=== PATIENT | female | born 1940 | race Caucasian/White ===

== ENCOUNTER 2018-09-18 16:25 | Emergency (ER) | payer MEDICARE ==
[~2018-09-18] VITALS: Ht 165.1 cm; Wt 59.0 kg
[~2018-09-18 16:25] MED LIST: CARV25 PO; MULVITMIND PO; Methimazole5 MG PO; OXYC10TA19; TOCO400 PO
[2018-09-18 17:25] LABS: Hematocrit 43.4 % (33.0-51.0); Hemoglobin 14.5 g/dL (11.5-16.0); Mean Corpuscular HGB 30.4 pg (26.0-34.0); Mean Corpuscular HGB Conc 33.4 g/dL (31.5-36.5); Mean Corpuscular Volume 91 fL (80-100); Mean Platelet Volume 10.9 fL (9.1-12.4); Platelet Count 187 K/mm3 (150-400); RDW Coefficient Variation 13.6 % (11.7-14.2); RDW Standard Deviation 46.3 fL (35.1-46.3); Red Blood Cell Count 4.77 M/mm3 (3.80-5.20); White Blood Cell Count 10.57 K/mm3 (4.00-11.30)
[2018-09-18 17:32] LABS: Bun/Creatinine Ratio 25.7 (12.0-20.0); Calcium, Blood 9.3 mg/dL (8.5-10.1); Creatinine, Blood 1.05 mg/dL (0.40-1.00); Potassium, Blood 4.1 mmol/L (3.5-5.5)
[2018-09-18] MEDS ORDERED: Norco 5-325 Ta1 EACH PO (17:57)
== END 2018-09-18 18:30 | disposition home or self-care (01) ==
LOC: ER 16:25
PROVIDERS: Emergency Medicine
DX: S61.412A Laceration without foreign body of left hand, initial encounter (principal); S61.411A Laceration without foreign body of right hand, initial encounter; S80.11XA Contusion of right lower leg, initial encounter; I42.9 Cardiomyopathy, unspecified; Z96.641 Presence of right artificial hip joint; Z88.2 Allergy status to sulfonamides; Z88.5 Allergy status to narcotic agent; Z88.8 Allergy status to other drugs, medicaments and biological substances; V86.99XA Unspecified occupant of other special all-terrain or other off-road motor vehicle injured in nontraffic accident, initial encounter
CPT/HCPCS: 73502; 73552; 73590; 80048; 82550; 85027; 90471; 90714; 99283-25

== ENCOUNTER 2019-09-12 09:21 | Day surgery (SDC) | payer MEDICARE ==
[~2019-09-12 09:21] MED LIST changes: +Hair, Skin & N1 EACH PO; -MULVITMIND PO; +Norco 5-325 Ta1 EACH PO
[2019-10-20] MEDS ORDERED: K-Dur10 MEQ PO (15:58)
[2019-10-20] MEDS ORDERED: VALSARTAN160 MG PO (15:59)
[2019-10-22] MEDS ORDERED: OXYC5 PO (12:51)
[2019-10-22] MEDS ORDERED: XARELTO15 MG PO (15:53)
== END 2019-09-12 23:00 | disposition home or self-care (01) ==
LOC: MOI US 09:21 → MOI MAM 09:30 → MOI US 23:00
DX: C50.812 Malignant neoplasm of overlapping sites of left female breast (principal); Z17.0 Estrogen receptor positive status [ER+]
CPT/HCPCS: 19083; 77065; 88305; 88360; A4648

== ENCOUNTER → 2019-10-20 | Outpatient (CLI) | payer MEDICARE ==
[~2019-10-20] MED LIST changes: +K-Dur10 MEQ PO; +OXYC5 PO; +VALSARTAN160 MG PO; +XARELTO15 MG PO
[2019-10-20 12:21] LABS: Hematocrit 41.2 % (33.0-51.0); Hemoglobin 14.2 g/dL (11.5-16.0); Mean Corpuscular HGB 30.6 pg (26.0-34.0); Mean Corpuscular HGB Conc 34.5 g/dL (31.5-36.5); Mean Corpuscular Volume 89 fL (80-100); Mean Platelet Volume 12.5 fL (9.1-12.4); Platelet Count 77 K/mm3 (150-400); RDW Coefficient Variation 13.4 % (11.7-14.2); RDW Standard Deviation 44.2 fL (35.1-46.3); Red Blood Cell Count 4.64 M/mm3 (3.80-5.20); White Blood Cell Count 1.13 K/mm3 (4.00-11.30)
[2019-10-20 12:39] LABS: Alanine Aminotransfer (ALT/SGP 25 U/L (12-78); Albumin/Globulin Ratio 0.9 (0.8-1.8); Alk Phos 64 U/L (50-136); Anion Gap 6 mmol/L (6-16); Aspartate Aminotrans (AST/SGOT 15 U/L (12-37); Bilirubin, Total 0.7 mg/dL (0.1-1.0); Blood Urea Nitrogen 27 mg/dL (8-24); Bun/Creatinine Ratio 41.3 (12.0-20.0); CO2, Blood 24 mmol/L (21-32); Calcium, Blood 8.8 mg/dL (8.5-10.1); Chloride, Blood 103 mmol/L (98-108); Creatinine, Blood 0.65 mg/dL (0.40-1.00); Globulin, Blood 3.4 g/dL (2.2-4.0); Glomerular Filtration Rate >60 (60-); Glucose, Blood 123 mg/dL (70-99); Potassium, Blood 4.7 mmol/L (3.5-5.5); Sodium, Blood 133 mmol/L (136-145); Total Protein, Blood 6.4 g/dL (6.4-8.2)
[2019-10-20 12:50] LABS: BASOPHILS ABSOLUTE MAN 0.02 K/mm3 (0.00-0.23); BASOPHILS PERCENT MAN 2 % (0-2); EOSINOPHILS ABSOLUTE MAN 0.05 K/mm3 (0.00-0.68); EOSINOPHILS PERCENT MAN 5 % (0-6); LYMPHOCYTES ABSOLUTE MAN 0.37 K/mm3 (0.84-5.20); LYMPHOCYTES PERCENT MAN 33 % (21-46); MONOCYTES ABSOLUTE MAN 0.05 K/mm3 (0.16-1.47); MONOCYTES PERCENT MAN 5 % (4-13); NEUTROPHILS ABSOLUTE MAN 0.61 K/mm3 (1.96-9.15); SEG NEUTROPHILS PERCENT MAN 54 % (41-73); TOTAL CELLS COUNTED 57
== END | disposition home or self-care (01) ==
LOC: LAB 11:46 → LAB SHORT 11:46
PROVIDERS: Internal Medicine Hematology & Oncology
DX: C50.919 Malignant neoplasm of unspecified site of unspecified female breast (principal)
CPT/HCPCS: 80053; 85025

== ENCOUNTER → 2020-06-28 | Outpatient (CLI) | payer MEDICARE ==
[~2020-06-28] MED LIST changes: +Lasix20 MG PO
== END | disposition home or self-care (01) ==
LOC: LAB SHORT 12:47 → PLD 12:47
DX: D09.8 Carcinoma in situ of other specified sites (principal); L57.0 Actinic keratosis
CPT/HCPCS: 88305

== ENCOUNTER 2022-09-19 11:25 | Inpatient (IN) | payer MEDICARE ==
[~2022-09-19] VITALS: Ht 167.6 cm; Wt 58.1 kg
[2022-09-19 12:21] LABS: BASOPHILS ABSOLUTE AUTO 0.06 K/mm3 (0.00-0.23); BASOPHILS PERCENT AUTO 1 % (0-2); EOSINOPHILS ABSOLUTE AUTO 0.16 K/mm3 (0.00-0.68); EOSINOPHILS PERCENT AUTO 2 % (0-6); Hematocrit 44.5 % (33.0-51.0); Hemoglobin 15.6 g/dL (11.5-16.0); IMMATURE GRAN ABSOLUTE AUTO 0.04 K/mm3 (0.00-0.10); IMMATURE GRAN PERCENT AUTO 0 % (0-1); LYMPHOCYTES ABSOLUTE AUTO 1.04 K/mm3 (0.84-5.20); LYMPHOCYTES PERCENT AUTO 11 % (21-46); MONOCYTES ABSOLUTE AUTO 0.65 K/mm3 (0.16-1.47); MONOCYTES PERCENT AUTO 7 % (4-13); Mean Corpuscular HGB 31.1 pg (26.0-34.0); Mean Corpuscular HGB Conc 35.1 g/dL (31.5-36.5); Mean Corpuscular Volume 89 fL (80-100); Mean Platelet Volume 10.2 fL (9.1-12.4); NEUTROPHILS ABSOLUTE AUTO 7.42 K/mm3 (1.96-9.15); NEUTROPHILS PERCENT AUTO 79 % (41-73); Platelet Count 192 K/mm3 (150-400); RDW Standard Deviation 45.4 fL (35.1-46.3); Red Blood Cell Count 5.02 M/mm3 (3.80-5.20); White Blood Cell Count 9.37 K/mm3 (4.00-11.30)
[2022-09-19 12:35] LABS: Albumin, Blood 3.3 g/dL (3.4-5.0); Albumin/Globulin Ratio 0.8 (0.8-1.8); Bilirubin, Total 0.6 mg/dL (0.1-1.0); Bun/Creatinine Ratio 32.9 (12.0-20.0); Calcium, Blood 8.9 mg/dL (8.5-10.1); Creatinine, Blood 0.94 mg/dL (0.40-1.00); Globulin, Blood 3.9 g/dL (2.2-4.0); Potassium, Blood 4.4 mmol/L (3.5-5.5); Total Protein, Blood 7.2 g/dL (6.4-8.2)
[2022-09-19] MEDS ORDERED: XARELTO20 MG PO (15:54)
[2022-09-19 16:11] VITALS: BP 130/63
--- NOTE | 2022-09-19 16:45 | NUR ---
ADMIT ARRIVED FROM ED VIA Kelvin HOWARD&ANISH4, DENIES ANY PAIN, C/O SOB, WORSE WITH ACTIVITY AND BETTER WHEN LYING DOWN, DENIES ANY N/V, DIZZINESS, LUNG SOUNDS DIMINISHED AND TIGHT T/O, SATS 97% ON RA, TELE PLACED, SB AT 49 W/ PVC'S AND 1ST DEGREE BBB [facility], PT ORIENTED TO ROOM, CALL LIGHT WITHIN REACH, CONT. TO MONITOR FOR ANY CHANGES.
--- NOTE | 2022-09-19 18:17 | NUR ---
SUMMARY PT ARRIVED FROM THE ER THIS AFTERNOON, REPORTS SOB IS SLIGHTLY "BETTER" SINCE ADMIT, CONT. TO VOID FREQUENTLY, INDEPENDENT TO THE BATHROOM, DENIES ANY OTHER DISCOMFORT, NO ACUTE CHANGES THIS SHIFT.
[2022-09-19 19:56] VITALS: BP 121/68
[2022-09-19 21:51] LABS: Magnesium, Blood 2.4 mg/dL (1.6-2.4); Potassium, Blood 3.4 mmol/L (3.5-5.5)
[2022-09-20 04:18] VITALS: BP 89/71
[2022-09-20 04:51] VITALS: BP 113/71
[2022-09-20 04:54] VITALS: BP 109/63
--- NOTE | 2022-09-20 05:04 | NUR ---
SHIFT SUMMARY; NO ACUTE CHANGES OVERNIGHT. THE PT HAS BEEN SLEEPING IN BED FOR THE DURATION OF THE SHIFT. THE PT IS AXO X4 AND INDEPENDENT TO THE BATHROOM. THE PT DID HAVE A 6 BEAT RUN OF [place]ACH LAST NIGHT, FOR WHICH SARKIS FLORES WAS MADE AWARE OF. SARKIS FLORES HAD US CHECK THE PATIENTS POTASSIUM AND MAG LEVEL, POTASSIUM WAS LOW SO WE REPLACED WITH IV AND PO POTASSIUM. ADDITIONALY, THE PT HAS BEEN IN AND OUT OF SINUS ARRYTHMIA. THE PT DENIES ANY PAIN, SOB, CHEST PAIN/PRESSURE OR N/V THIS SHIFT. CURRENTLY THE PT IS SLEEPING IN BED WITH THE BED IN THE LOWEST POSITION AND THE CALL LIGHT AT BEDSIDE.
[2022-09-20 05:41] LABS: Bun/Creatinine Ratio 29.7 (12.0-20.0); Creatinine, Blood 0.91 mg/dL (0.40-1.00); Potassium, Blood 4.4 mmol/L (3.5-5.5)
[2022-09-20 09:23] VITALS: BP 117/74
--- NOTE | 2022-09-20 11:31 | NUR ---
FIRE NOTE PT EDUCATED RE: IGNITION SOURCES AND RISK OF INJURY. PT VERBALIZED UNDERSTANDING AND DENIED SMOKING OR HAVING LIGHTABLE DEVICES AT THIS ITME. CONTINUE POC.
[2022-09-20 16:06] VITALS: BP 116/78
--- NOTE | 2022-09-20 17:53 | NUR ---
EVENING NOTE PT UP ADLIB IN RTOOM. VOIDING WELL. STRICT I/O. DAILY WT DONE. ECHO COMPLETE. PT C/O OF EVENING SOB. DR YESENIA MAHMOOD. PT STAYING TONIGHT. SHE HAD SOME MISCOMCEPTIONS ABOUT AICD/BIVENTRICULAR PACEMAKER. CLARIFIED HER IDEAS. SHE WILL BE REACHING OUT TO HER ARCHEOLOGIST CLASSICAL IN [place] WHEN SHE IS DISCHARGED TO DISCUSS PLACEMENT. VSS. RA. CONTINUE POC.
[2022-09-20 19:37] VITALS: BP 104/63
[2022-09-21 04:29] VITALS: BP 124/61
[2022-09-21 06:17] LABS: Bun/Creatinine Ratio 30.2 (12.0-20.0); Calcium, Blood 8.7 mg/dL (8.5-10.1); Creatinine, Blood 0.96 mg/dL (0.40-1.00); Potassium, Blood 3.7 mmol/L (3.5-5.5)
--- NOTE | 2022-09-21 06:45 | NUR ---
SUMMARY NO ACUTE CHANGES NOTED, PT IS A&OX4, ON RA, VSS, INDEPENDENT IN THE ROOM, PT SAYS SHE GETS SOB W/ACTIVITY, DENIES DIZZINESS, CP/PRESSURE. RESTING AT THIS TIME, CALL LIGHT IN REACH, WCYFN & REPORT TO DAY RN
[2022-09-21 07:26] VITALS: BP 112/73
[2022-09-21] MEDS ORDERED: LISI5 PO (13:04)
--- NOTE | 2022-09-21 14:21 | NUR ---
SHIFT SUMMARY- VSS. PT INDEPENDANT IN ROOM. PT EAGER FOR D/C. ON RA. TELE AFIB, AND 5 SEC RUN SVT VIA [employer] CONSULTANT, PT ASYMPTOMATIC. WILL CONTINUE TO MONITOR. CALL LIGHT IN REACH. BED AT LOWEST POSITION.
--- NOTE | 2022-09-21 14:28 | NUR ---
DISCHARGE PT EDUCATED ON DISCHARGE PAPERWORK. SON TO TRANSPORT PT HOME VIA [employer]. ALL BELONGINGS IN HAND. WHEELCHAIR DRIVEN TO SON [employer].
--- NOTE | 2022-09-21 14:30 | NUR ---
FIRE SAFETY EDUCATED PT ON IGITION SOURCES, NONE FOUND IN ROOM. PT UNDERSTANDS FIRE SAFETY EDUCATION. PT NOT ON O2. HOURLY ROUNDING PERFORMED FOR PT SAFETY.
== END 2022-09-21 13:59 | disposition home or self-care (01) | DRG 292 ==
LOC: ER 11:25 → MEDS 11:26 → ENPENDDIS 09-21 12:59 → MEDS 09-21 13:59
PROVIDERS: Nurse Practitioner Acute Care; Physician Assistant; ADMIT Internal Medicine
DX: I50.23 Acute on chronic systolic (congestive) heart failure (principal); I42.9 Cardiomyopathy, unspecified; I47.1 Supraventricular tachycardia; E05.00 Thyrotoxicosis with diffuse goiter without thyrotoxic crisis or storm; I48.0 Paroxysmal atrial fibrillation; R00.1 Bradycardia, unspecified; I95.9 Hypotension, unspecified; Z88.2 Allergy status to sulfonamides; Z88.8 Allergy status to other drugs, medicaments and biological substances; Z88.5 Allergy status to narcotic agent; Z79.899 Other long term (current) drug therapy; Z86.718 Personal history of other venous thrombosis and embolism; Z79.01 Long term (current) use of anticoagulants; Z79.891 Long term (current) use of opiate analgesic; Z85.3 Personal history of malignant neoplasm of breast; Z86.79 Personal history of other diseases of the circulatory system; Z96.651 Presence of right artificial knee joint; Z90.12 Acquired absence of left breast and nipple; Z90.49 Acquired absence of other specified parts of digestive tract; Z98.890 Other specified postprocedural states
CPT/HCPCS: 36415; 71046; 80048; 80053; 83735; 83880; 84132; 84484; 85025; 93005; 93010; 96365; 96366; 96375; 96376; 99285-25; A9270; C8929; G0378; J1940; J3475; J3480; J7050; Q9957

== ENCOUNTER 2022-12-22 19:48 | Observation (INO) | payer MEDICARE ==
[~2022-12-22] VITALS: Ht 165.1 cm; Wt 64.9 kg
[~2022-12-22 19:48] MED LIST changes: +LISI5 PO; +XARELTO20 MG PO
[2022-12-22 20:54] LABS: BASOPHILS ABSOLUTE AUTO 0.06 K/mm3 (0.00-0.23); BASOPHILS PERCENT AUTO 1 % (0-2); EOSINOPHILS ABSOLUTE AUTO 0.25 K/mm3 (0.00-0.68); EOSINOPHILS PERCENT AUTO 2 % (0-6); Hematocrit 39.6 % (33.0-51.0); Hemoglobin 13.4 g/dL (11.5-16.0); IMMATURE GRAN PERCENT AUTO 1 % (0-1); LYMPHOCYTES ABSOLUTE AUTO 1.18 K/mm3 (0.84-5.20); LYMPHOCYTES PERCENT AUTO 10 % (21-46); MONOCYTES ABSOLUTE AUTO 1.13 K/mm3 (0.16-1.47); MONOCYTES PERCENT AUTO 10 % (4-13); Mean Corpuscular HGB 30.9 pg (26.0-34.0); Mean Corpuscular HGB Conc 33.8 g/dL (31.5-36.5); Mean Corpuscular Volume 92 fL (80-100); Mean Platelet Volume 10.3 fL (9.1-12.4); NEUTROPHILS ABSOLUTE AUTO 9.13 K/mm3 (1.96-9.15); NEUTROPHILS PERCENT AUTO 77 % (41-73); Platelet Count 167 K/mm3 (150-400); RDW Coefficient Variation 14.6 % (11.7-14.2); RDW Standard Deviation 48.8 fL (35.1-46.3); Red Blood Cell Count 4.33 M/mm3 (3.80-5.20); White Blood Cell Count 11.85 K/mm3 (4.00-11.30)
[2022-12-22 21:17] LABS: Albumin, Blood 3.4 g/dL (3.4-5.0); Bilirubin, Total 0.4 mg/dL (0.1-1.0); Bun/Creatinine Ratio 30.7 (12.0-20.0); Calcium, Blood 9.4 mg/dL (8.5-10.1); Creatinine, Blood 0.94 mg/dL (0.40-1.00); Globulin, Blood 3.3 g/dL (2.2-4.0); Total Protein, Blood 6.7 g/dL (6.4-8.2)
[2022-12-23] VITALS (8 sets, daily range): BP systolic 98–116; BP diastolic 53–73
[2022-12-23 04:40] LABS: International Normalized Ratio 1.12; Prothrombin Time Results 11.7 Sec (9.7-11.5)
--- NOTE | 2022-12-23 06:53 | NUR ---
ASSUMPTION OF CARE PT ARRIVED TO PCU AT 0530. ARRIVED FROM ED VIA GURNEY, TRANSFERRED TO PCU HOSPITAL BED W/SBA. VSS; SBP SOFT AT 111 BUT PT STATES "THIS IS NORMAL" FOR HER. DENIES DIZZINESS OR LIGHTHEADNESS AT THIS TIME. PT ON RA, SPO2 99%. DENIES SOB. PT DENIES CP OR PRESSURE. PT HAS BRUISING ON R SIDE OF THE FACE, SHOULDER, R HAND AND ELBOW, AND HIP, KNEE; ALSO VARIOUS SMALL BRUISES SCATTERED FROM RECENT FALL AT HOME. PICTURES IN CHART. NEURO INTACT; PT A&O X4. FOLLOWS COMMANDS AND STRENGTH INTACT. PROVIDER INTO SEE PT AT BEDSIDE. PT NOW RESTING IN ROOM. NS INFUSING PER EMAR. WILL UPDATE ONCOMING RN
[2022-12-23 08:46] LABS: BASOPHILS ABSOLUTE AUTO 0.03 K/mm3 (0.00-0.23); BASOPHILS PERCENT AUTO 0 % (0-2); EOSINOPHILS ABSOLUTE AUTO 0.16 K/mm3 (0.00-0.68); EOSINOPHILS PERCENT AUTO 2 % (0-6); Hematocrit 36.9 % (33.0-51.0); Hemoglobin 12.9 g/dL (11.5-16.0); IMMATURE GRAN ABSOLUTE AUTO 0.02 K/mm3 (0.00-0.10); IMMATURE GRAN PERCENT AUTO 0 % (0-1); LYMPHOCYTES ABSOLUTE AUTO 0.88 K/mm3 (0.84-5.20); LYMPHOCYTES PERCENT AUTO 12 % (21-46); MONOCYTES ABSOLUTE AUTO 1.08 K/mm3 (0.16-1.47); MONOCYTES PERCENT AUTO 14 % (4-13); Mean Corpuscular HGB 31.7 pg (26.0-34.0); Mean Corpuscular Volume 91 fL (80-100); Mean Platelet Volume 10.4 fL (9.1-12.4); NEUTROPHILS ABSOLUTE AUTO 5.44 K/mm3 (1.96-9.15); NEUTROPHILS PERCENT AUTO 71 % (41-73); Platelet Count 149 K/mm3 (150-400); RDW Coefficient Variation 14.5 % (11.7-14.2); RDW Standard Deviation 48.1 fL (35.1-46.3); Red Blood Cell Count 4.07 M/mm3 (3.80-5.20); White Blood Cell Count 7.61 K/mm3 (4.00-11.30)
[2022-12-23 09:08] LABS: Free Thyroxine 1.22 ng/dL (0.70-1.60)
[2022-12-23 09:09] LABS: Thyroid Stimulating Hormone 1.09 uIU/mL (0.360-4.800)
--- NOTE | 2022-12-23 09:17 | NUR ---
CARE OF PT ASSUMED AT 0700. PT AWAKE AND ALERT, OX3. NO NEURO DEFICITS NOTED. PT DENIES HEADACHE. NO CHANGE IN VISION. PUPILS EQUAL AND REACTIVE 3/3MM. STRENGTH EQUAL TO BLE/BUE. PT SBA TO BATHROOM. PT C/O PAIN 6/10 TO RIGHT SIDE OF BODY; WHERE FALL OCCURED. PT C/O RIGHT RIB, SHOULDER, AND LOWER BACK PAIN. PT STATED OXY 5MG WORKS WELL; DR CORDOVA AT BEDSIDE AND WAS UPDATED; OXY 5MG Q 4HRS ORDERED FOR PAIN. INITIAL BP THIS AM SOFT W MAP 66. WILL HOLD COREG/LASIX FOR NOW AND REASSESS PER DR CORDOVA. EXTENSIVE BRUISING NOTED TO RIGHT SIDE BODY; PICTURES TAKEN. REPORT GIVEN TO MAC OLIVER AT 0900.
[2022-12-23 09:24] LABS: Albumin, Blood 3.1 g/dL (3.4-5.0); Albumin/Globulin Ratio 1.1 (0.8-1.8); Bilirubin, Total 0.5 mg/dL (0.1-1.0); Bun/Creatinine Ratio 26.3 (12.0-20.0); Calcium, Blood 8.8 mg/dL (8.5-10.1); Creatinine, Blood 0.84 mg/dL (0.40-1.00); Globulin, Blood 2.9 g/dL (2.2-4.0); Potassium, Blood 3.7 mmol/L (3.5-5.5)
--- NOTE | 2022-12-23 09:50 | NUR ---
Assumed care of patient. Pt resting in bed. Large bruses noted to face, L hand, and R shoulder. Also scattered. See pictures in chart. Pt states that most of her pain is in her R side/ribs. Pt was just medicated for pain per orders. LS diminished in bases. HR reg. BT positive. Pulses palp. Pt A/O x4. No neurologic deficits noted. IVF running per orders. Call light in reach. Will continue to monitor.
[2022-12-23 15:07] LABS: Source, Urine Clean Catch
[2022-12-23 15:14] LABS: Appearance, Urine Clear (Clear); Bilirubin, Urine Neg (Neg); Blood, Urine 1+ (Neg); Color, Urine Yellow (P-Yellow); Glucose Qualitative, Urine Neg (Neg); Ketones, Urine Neg (Neg); Leukocyte Esterase, Urine Neg (Neg); Nitrite, Urine Neg (Neg); Protein, Urine Neg (Neg); Specific Gravity, Urine 1.015 (1.003-1.022); Urobilinogen, Urine NORM (Normal)
[2022-12-23 15:20] LABS: Bacteria Few /hpf; Red Blood Cells, Urine 0-2 /hpf (0-2); Squamous Epithelial Cells Few /hpf (Few); White Blood Cells, Urine 0-2 /hpf (0-5)
--- NOTE | 2022-12-23 16:56 | NUR ---
ASSUME CARE/SHIFT SUMMARY ASSUMED CARE OF PT AT 1300. PT ALERT AND ORIENTED X4, ABLE TO FOLLOW COMMANDS AND MAKE NEEDS KNOWN. STRENGTH EQUAL BILATERALLY. NO NERUO DEFICITS NOTED. BP AND HR STABLE. AFEBRILE. SPO2 >98% ON ROOM AIR. LUNG SOUNDS CLEAR IN UPPER, DIM IN BASES. PULSES STRONG AND EQUAL THROUGHOUT. PT WITH LARGE CONTUSION ON FACE. PT WITH 6/10 PAIN, MEDICATED PER EMAR. NS GTT @75 ML/HR IN R. FOREARM. PT SBA TO AND FROM BATHROOM. URINE SPECIMEN COLLECTED. BED IN LOW, CALL LIGHT IN REACH, WILL REPORT TO ONCOMING RN.
[2022-12-24 04:00] VITALS: BP 113/79
--- NOTE | 2022-12-24 06:16 | NUR ---
SHIFT SUMMARY PT REMAINS A&O X4. NEURO CHECKS UNCHANGED. VSS. PT DENIES DIZZINESS OR LIGHTHEADNESS WHEN UP AMBULATING TO RESTROOM OR WHEN AT REST. PT C/O PAIN ON R SIDE, RIGHT SHOULDER AND R SIDE OF THE FACE. MEDICATION PER EMAR X2 THIS SHIFT W/GOOD RELIEF. REPOSITIONING, UNINTERRUPTED REST AND WARM BLANKET GIVEN TO HELP WITH PAIN CONTROL. NO ACUTE EVENTS OVERNIGHT. WILL UPDATE ONCOMING RN
[2022-12-24 08:06] VITALS: BP 109/81
[2022-12-24 11:00] VITALS: BP 153/68
[2022-12-24] MEDS ORDERED: DOCU100 PO (13:08)
[2022-12-24] MEDS ORDERED: ONDA4ODT MM (13:09)
--- NOTE | 2022-12-24 14:01 | NUR ---
DISCHARGE: PT D/C WITH SON @8511. DISCHARGE INSTRCTIONS AND EDUCATION PROVIDED. ALL BELONGINGS WITH PT.
== END 2022-12-24 13:55 | disposition home or self-care (01) ==
LOC: ER 19:48 → PCU 19:49
PROVIDERS: Internal Medicine; Physician Assistant; Student in an Organized Health Care Education/Training Program; ADMIT Internal Medicine
DX: S06.6XAA Traumatic subarachnoid hemorrhage with loss of consciousness status unknown, initial encounter (principal); W19.XXXA Unspecified fall, initial encounter; E05.00 Thyrotoxicosis with diffuse goiter without thyrotoxic crisis or storm; I50.20 Unspecified systolic (congestive) heart failure; Z86.718 Personal history of other venous thrombosis and embolism; Z88.5 Allergy status to narcotic agent; Z88.6 Allergy status to analgesic agent; Z88.2 Allergy status to sulfonamides; Z88.1 Allergy status to other antibiotic agents; Z79.01 Long term (current) use of anticoagulants; Z79.899 Other long term (current) drug therapy
CPT/HCPCS: 36415; 70450; 71045; 72125; 73030; 80053; 81001; 83880; 84439; 84443; 85025; 85610; 85730; 86850; 86900; 86901; 93005; 93010; 96365; 97162; 97530; 99285-25; A9270; G0378; J1953; J7030

== ENCOUNTER 2023-01-15 11:56 | Emergency (ER) | payer MEDICARE ==
[~2023-01-15] VITALS: Ht 165.1 cm; Wt 56.7 kg
[~2023-01-15 11:56] MED LIST changes: +DOCU100 PO; +ONDA4ODT MM
[2023-01-15 12:15] VITALS: BP 149/85
[2023-01-15] MEDS ORDERED: CELE100 PO (15:36)
== END 2023-01-15 15:49 | disposition home or self-care (01) ==
LOC: ER 11:56
DX: M75.31 Calcific tendinitis of right shoulder (principal); Z88.2 Allergy status to sulfonamides; Z88.5 Allergy status to narcotic agent; Z79.899 Other long term (current) drug therapy; Z88.8 Allergy status to other drugs, medicaments and biological substances; Z85.3 Personal history of malignant neoplasm of breast; I50.9 Heart failure, unspecified
CPT/HCPCS: 73030; 93005; 93010; 99283-25

== ENCOUNTER 2023-03-29 06:13 | Day surgery (SDC) | payer MEDICARE ==
[~2023-03-29] VITALS: Ht 165.1 cm; Wt 60.0 kg
[~2023-03-29 06:13] MED LIST changes: +CELE100 PO
[2023-03-29 06:54] VITALS: BP 124/80
[2023-03-29 08:08] VITALS: BP 105/57
[2023-03-29 08:15] VITALS: BP 111/73
--- NOTE | 2023-03-29 08:15 | NUR ---
PT BACK TO RECOVERY ROOM VIA RECLINER AFTER PROCEDURE. AWAKE AND ALERT, DENIES ANY PAIN OR DISCOMFORT. VSS, RIGHT RADIAL SITE WITH PRELUDE BAND AND SPLINT IN PLACE. COFFEE GIVEN PER PT REQUEST
[2023-03-29 08:30] VITALS: BP 108/73
--- NOTE | 2023-03-29 08:33 | NUR ---
PT EATING BREAKFAST, VISITING WITH STAFF. RIGHT RADIAL SITE REMAINS SOFT AND NON-TENDER. CALL LIGHT IN REACH
[2023-03-29 08:45] VITALS: BP 112/77
--- NOTE | 2023-03-29 08:57 | NUR ---
RIGHT RADIAL PRELUDE BAND HAS BEEN FULLY DEFLATED, NO BLEEDING OR SWELLING AT SITE. VSS, CALL LIGHT IN REACH. PT GIVEN ADDITIONAL COFFEE PER REQUEST, DENIES OTHER NEEDS.
[2023-03-29 09:00] VITALS: BP 125/99
--- NOTE | 2023-03-29 09:35 | NUR ---
IV DC'D, CATH INTACT. PT GIVEN DC INSTRUCTIONS AND FOLLOW UP INFO, VERBALIZED UNDERSTANDING. RIGHT RADIAL SITE WITH CLOTH DOT DRESSING AND SPLINT IN PLACE, NO BLEEDING OR SWELLING NOTED AT SITE. OUT TO CAR VIA WHEELCHAIR, ACCOMPANIED BY SON WHO WILL DRIVE PT HOME.
== END 2023-03-29 22:55 | disposition home or self-care (01) ==
LOC: MHTC 06:13
DX: I13.0 Hypertensive heart and chronic kidney disease with heart failure and stage 1 through stage 4 chronic kidney disease, or unspecified chronic kidney disease (principal); I50.22 Chronic systolic (congestive) heart failure; N18.9 Chronic kidney disease, unspecified; I42.8 Other cardiomyopathies; I25.10 Atherosclerotic heart disease of native coronary artery without angina pectoris; R55 Syncope and collapse; I45.5 Other specified heart block; I48.0 Paroxysmal atrial fibrillation; Z66 Do not resuscitate; Z88.5 Allergy status to narcotic agent; Z88.6 Allergy status to analgesic agent; Z79.899 Other long term (current) drug therapy
CPT/HCPCS: 76937; 93005; 93010; 93454; 99152; 99153; A9270; C1769; C1887; C1894; J1644; J2250; J3010; J7030; J7050; Q9967

== ENCOUNTER 2023-04-12 06:40 | Day surgery (SDC) | payer MEDICARE ==
[2023-04-12] VITALS (13 sets, daily range): BP systolic 93–171; BP diastolic 62–111
[~2023-04-12] VITALS: Ht 165.1 cm; Wt 56.0 kg
[~2023-04-12 06:40] MED LIST changes: +C COMPLEX1000 M1 PO; +Calcium Carbon500 MG PO; +FISH OIL 1,0001 EA10 PO
[2023-04-13] VITALS: BP 95/57
[2023-04-13 01:00] VITALS: BP 97/65
[2023-04-13 03:00] VITALS: BP 91/55
[2023-04-13 07:00] VITALS: BP 115/69
[2023-04-13] MEDS ORDERED: Cephalexin500 MG PO (10:08)
== END 2023-04-13 10:55 | disposition home or self-care (01) ==
LOC: MHTC 06:40 → PCU 13:06 → MHTC 04-13 10:55
DX: I44.0 Atrioventricular block, first degree (principal); I49.5 Sick sinus syndrome; I42.8 Other cardiomyopathies; I45.10 Unspecified right bundle-branch block; I13.0 Hypertensive heart and chronic kidney disease with heart failure and stage 1 through stage 4 chronic kidney disease, or unspecified chronic kidney disease; N18.9 Chronic kidney disease, unspecified; I50.22 Chronic systolic (congestive) heart failure; I34.0 Nonrheumatic mitral (valve) insufficiency; I27.20 Pulmonary hypertension, unspecified; I48.0 Paroxysmal atrial fibrillation; Z66 Do not resuscitate; Z88.5 Allergy status to narcotic agent; Z88.2 Allergy status to sulfonamides; Z88.8 Allergy status to other drugs, medicaments and biological substances; Z79.899 Other long term (current) drug therapy
CPT/HCPCS: 33208; 71045; 76937; 99152; 99153; A9270; C1769; C1785; C1894; C1898; J0690; J1644; J1940; J2250; J3010; J7030; J7040